=== PATIENT | male | born 1965 | race Hispanic/Latino ===

== ENCOUNTER 2019-10-16 23:19 | Emergency (ER) | payer SELFPAY ==
[~2019-10-16] VITALS: Ht 175.3 cm; Wt 99.8 kg
[2019-10-16] MEDS ORDERED: CLONIDINE HCL 0.2 MG TAB PO ONE (23:45)
[2019-10-16] MEDS ORDERED: CLONIDINE HCL 0.2 MG TAB ONE (23:55)
[2019-10-17] MEDS ORDERED: HYDROCODONE/APAP 10MG-325MG TAB PO ONE
--- NOTE | 2019-10-17 00:21 | Diagnostic Imaging Report ---
HAND 3+ VIEWS LEFT, FOREARM LEFT 2 VIEW - 3 views HISTORY: Pain. COMPARISON: None available. FINDINGS: Bones: No acute displaced fracture. Osseous alignment is within normal limits. Joints: The joint spaces are well-maintained. Soft tissues: Questionable soft tissue laceration of the distal forearm. IMPRESSION: No acute radiographic abnormality. Signed by: Scott Medel MD on 10/17/2019 12:18 AM
== END 2019-10-17 00:40 | disposition home or self-care (01) ==
LOC: ER 23:19
DX: S60.222A Contusion of left hand, initial encounter (principal); Y04.0XXA Assault by unarmed brawl or fight, initial encounter; Y92.89 Other specified places as the place of occurrence of the external cause; I10 Essential (primary) hypertension; E11.9 Type 2 diabetes mellitus without complications
CPT/HCPCS: 99283